=== PATIENT | female | born 1990 ===

== ENCOUNTER → 2017-11-12 | Outpatient (CLI) | payer OTHER ==
[~2017-11-12] MED LIST: GADAVIST IV PRN; OXYC-57 PO
--- NOTE | 2017-11-12 08:17 | DIAGNOSTIC IMAGING REPORT ---
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 COMPARISON STUDY: Outside hospital brain MRI 03/09/2014. FINDINGS: No areas of restricted diffusion to suggest acute infarction. The midline structures are intact. Small cystic focus adjacent to the midline of the adenoid which measures 1 cm. 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 Paranasal sinuses and mastoid air cells are clear. The orbits are unremarkable. The major vascular flow-voids at the skull base are well-maintained. The ventricles and sulci are within normal limits. There is no mass, hematoma, or midline shift. Focal area of increased T2 signal within the peritracheal white matter of the left frontal lobe remain stable. There is also stable 6 mm T2 hyperintense enhancing focus within the white matter of the left parietal lobe. No new white matter abnormalities identified. Question faint focus of enhancement within the left frontal lobe on image 13 favors artifact. This is not confirmed on the coronal postcontrast sequences. IMPRESSION: 1. Overall, no significant change compared to the 2014 examination. 2. Stable 6 mm T2 hyperintense enhancing focus within the white matter of the left parietal lobe. This is nonspecific but could represent a vascular anomaly such as a capillary telangectasia. Continued follow-up is recommended to ensure stability. 3. There is also stable focal area of increased T2 signal within the left frontal white matter. The stability favors the possibility of an old ischemic insult. Electronically signed by: Sanjiv Juan M.D. 11/12/2017 8:45 AM Dictated Date/Time: 11/12/2017 8:04 AM
== END | disposition home or self-care (01) ==
LOC: C.MRIBC 06:51
PROVIDERS: ATTEND Psychiatry & Neurology Neurology
DX: G44.009 Cluster headache syndrome, unspecified, not intractable (principal); I67.82 Cerebral ischemia